=== PATIENT | male | born 1960 | race Caucasian/White ===

== ENCOUNTER 2021-06-07 11:22 | Outpatient (REF) | payer OTHER, SELFPAY ==
[2021-06-07 13:16] LABS: MANUAL DIFF FLAG NO
[2021-06-07 13:23] LABS: Eosinophils Percent Auto 0.2 % (0-4); Hematocrit 44.2 % (42.0-52.0); Hemoglobin 15.3 g/dl (14.0-18.0); Imm Gran Abs Auto 0.01 X10*3/uL (0.00-0.03); Imm Gran Pct Auto 0.2 % (0.0-0.4); Lymphocytes Absolute Auto 1.6 X10*3/uL (1.2-4.9); Lymphocytes Percent Auto 38.1 % (20-40); Mean Corpuscular HGB Conc 34.6 g/dl (31.0-36.0); Mean Corpuscular Hemoglobin 30.2 pg (27.0-33.0); Mean Corpuscular Volume 87.4 fL (80.0-98.0); Mean Platelet Volume 9.1 fL (9.4-12.4); Monocytes Absolute Auto 0.3 X10*3/uL (0.1-1.2); Monocytes Percent Auto 7.3 % (2-11); Neutrophils Absolute Auto 2.3 x10*3/uL (2.0-8.3); Neutrophils Percent Auto 54.2 % (45-73); Platelet Count 160 X10*3/uL (160-400); Red Blood Count 5.06 X10*6/uL (4.60-5.80); Red Cell Distribution Width 12.7 % (11.0-16.0); White Blood Count 4.3 X10*3/uL (4.8-10.8)
[2021-06-07 13:48] LABS: Alanine Aminotransferase 20 U/L (0-40); Albumin Level 4.6 g/dL (3.5-5.0); Alkaline Phosphatase 54 U/L (39-117); Anion Gap 12 (12-20); Aspartate Amino Transferase 20 U/L (5-37); Bilirubin Total 1.3 mg/dL (0.0-1.0); Blood Urea Nitrogen 14 mg/dL (9-16); Calcium 9.5 mg/dL (8.4-10.2); Carbon Dioxide 26 mmol/L (22-29); Chloride 108 mmol/L (96-108); Cholesterol 201 mg/dL; Estimated Glomerular Filt Rate > 60; Glucose Fasting 82 mg/dL (60-99); HDL Cholesterol 44 mg/dL; LDL Cholesterol Calculated 133 mg/dl; Potassium 4.6 mmol/L (3.3-5.1); Sodium 141 mmol/L (135-145); Total Protein 7.3 g/dL (6.5-8.0); Triglycerides 120 mg/dL
[2021-06-07 14:09] LABS: Prostate Specific Antigen 2.47 ng/mL (<0.05-4.0)
== END 2021-06-07 11:23 | disposition home or self-care (01) ==
LOC: HO.MANLDS 11:22
PROVIDERS: PCP Physician Assistant; Visit Provider Physician Assistant
DX: Z12.5 Encounter for screening for malignant neoplasm of prostate (principal); K21.9 Gastro-esophageal reflux disease without esophagitis; Z82.49 Family history of ischemic heart disease and other diseases of the circulatory system; Z80.42 Family history of malignant neoplasm of prostate
CPT/HCPCS: 36415; 80053; 80061; 84153; 85025

== ENCOUNTER 2022-03-11 12:32 | Outpatient (REF) | payer OTHER, SELFPAY ==
--- NOTE | ~2022-03-11 | XR_ITS ---
EXAMINATION: XR FOOT, RIGHT CLINICAL INFORMATION: Right foot calcaneal spur COMPARISON: 10/28/2013 TECHNIQUE: AP, lateral, and oblique views of the right foot. FINDINGS: No acute fracture or dislocation. Insertional calcaneal enthesopathy. Again seen is mild arthritis of the first MTP joint. Os trigonum noted. 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
== END 2022-03-11 12:33 | disposition home or self-care (01) ==
LOC: HO.XRAY 12:32
PROVIDERS: PCP Internal Medicine; Visit Provider Internal Medicine
DX: M77.31 Calcaneal spur, right foot (principal)
CPT/HCPCS: 73630

== ENCOUNTER 2024-07-06 16:13 | Outpatient (REF) | payer MEDICARE, SELFPAY ==
--- OUTSIDE RECORDS SUMMARY | 2024-07-06 16:15 | XMS_ITS | Data Portability ---
Author Organization [facility] Address [address] [place] [address] Assessment Encounter Date Assessment Date Assessment LastModified by Organization Details LastModified Time 01/05/2024 01/05/2024 [id number] [place] [id number] (ENGLISH LECTURER) : MDM LOW MUST MEET 2 OF 3 ELEMENTS: PROBLEMS, DATA OR RISK ELEMENT 1: PROBLEMS ADDRESSED (LOW): 2 OR MORE SELF-LIMITED OR MINOR PROBLEMS OR 1 STABLE CHRONIC ILLNESS OR 1 ACUTE UNCOMPLICATED ILLNESS OR INJURY ELEMENT 2: DATA TO BE REVISED AND ANALYZED (LOW) MUST MEET 1 OF 2 CATEGORIES: CATEGORY 1. REVIEW OF PRIOR EXTERNAL NOTES/RESULTS, ORDERING OF TEST(S) CATEGORY 2. ASSESSMENT REQUIRING INDEPENDENT HISTORIAN(S) INCLUDE WHO THE HISTORIAN IS AND RELATION TO PT AND WHY PT IS UNABLE TO GIVE COMPLETE HISTORY ELEMENT 3: RISK (LOW) RISK OF COMPLICATIONS AND/OR MORBIDITY OR MORTALITY OF PATIENT MANAGEMENT PROVIDER MUST THOROUGHLY DOCUMENT ALL OF THE ELEMENTS COVERED Not available 01/05/2024 16:33:57 03/15/2024 03/15/2024 [id number] [place] [id number] (ENGLISH LECTURER) MDM MODERATE MUST MEET 2 OUT OF 3 ELEMENTS: PROBLEMS, DATA OR RISK ELEMENT 1: PROBLEMS ADDRESSED 1 OR MORE CHRONIC ILLNESS WITH EXACERBATION OR 2 OR MORE STABLE CHRONIC ILLNESSES OR 1 UNDIAGNOSED NEW PROBLEM OR 1 ACUTE ILLNESS W/SYMPTOMS OR 1 ACUTE COMPLICATED INJURY ELEMENT 2: DATA MUST MEET 1 OF 3 CATEGORIES CATEGORY 1: REVIEW OF PRIOR EXTERNAL NOTES, REVIEW OF RESULTS, ORDERING OF EACH TEST, ASSESSMENT REQUIRING INDEPENDENT HISTORIAN OR CATEGORY 2: INDEPENDENT INTERPRETATION OF TESTS BY ANOTHER PHYSICIAN OR SPECIALIST OR CATEGORY 3: DISCUSSION OF MGT OR TEST INTERPRETATION W/EXTERNAL PHYSICIAN OR SPECIALIST ELEMENT 3: RISK RISK OF COMPLICATIONS AND/OR MORBIDITY OR MORTALITY OF PATIENT MANAGEMENT PROVIDER MUST THOROUGHLY DOCUMENT EACH ELEMENT THAT IS COVERED Not available 03/15/2024 15:20:09 07/06/2024 07/06/2024 [id number] [place] [id number] (ENGLISH LECTURER) MDM MODERATE MUST MEET 2 OUT OF 3 ELEMENTS: PROBLEMS, DATA OR RISK ELEMENT 1: PROBLEMS ADDRESSED 1 OR MORE CHRONIC ILLNESS WITH EXACERBATION OR 2 OR MORE STABLE CHRONIC ILLNESSES OR 1 UNDIAGNOSED NEW PROBLEM OR 1 ACUTE ILLNESS W/SYMPTOMS OR 1 ACUTE COMPLICATED INJURY ELEMENT 2: DATA MUST MEET 1 OF 3 CATEGORIES CATEGORY 1: REVIEW OF PRIOR EXTERNAL NOTES, REVIEW OF RESULTS, ORDERING OF EACH TEST, ASSESSMENT REQUIRING INDEPENDENT HISTORIAN OR CATEGORY 2: INDEPENDENT INTERPRETATION OF TESTS BY ANOTHER PHYSICIAN OR SPECIALIST OR CATEGORY 3: DISCUSSION OF MGT OR TEST INTERPRETATION W/EXTERNAL PHYSICIAN OR SPECIALIST ELEMENT 3: RISK RISK OF COMPLICATIONS AND/OR MORBIDITY OR MORTALITY OF PATIENT MANAGEMENT PROVIDER MUST THOROUGHLY DOCUMENT EACH ELEMENT THAT IS COVERED Not available 07/06/2024 16:06:26 Plan of Treatment Reminders Order Date Submit Date Provider Last Modified By Organization Details Last Modified Time Details Appointments SDV 2024 03:30P M DR DAVIS Not available Not available Not available MEDICARE ANNUAL WELLNESS 2025 10:00A M DR DAVIS Not available Not available Not available Lab CMP, serum or plasma 2024 025 [facility], [address] [place] [address], [place], [address], 07/06/2024 16:09:34 lipase, serum or plasma 2024 025 [facility], [address] [place] [address], [address], 07/06/2024 16:09:34 amylase, serum or plasma 2024 025 [facility], [address] [place] [address], [place], [address], 07/06/2024 16:09:34 erythrocy te sedimenta tion rate by giselle n method 2024 025 [facility], [address] [place] [address], [place], [address], 07/06/2024 16:09:34 lipid panel, serum 2024 025 [facility] (Centralized Electronic Ordering - All Locations), Patient Can Go To The Location Of Their Choice, 03/18/2024 10:34:54 CMP, serum or plasma 2024 025 [facility] (Centralized Electronic Ordering - All Locations), Patient Can Go To The Location Of Their Choice, 03/18/2024 10:34:53 CBC w/ auto diff 2024 025 [facility] (Centralized Electronic Ordering - All Locations), Patient Can Go To The Location Of Their Choice, 03/18/2024 10:34:53 PSA, serum or plasma 2024 025 [facility] (Centralized Electronic Ordering - All Locations), Patient Can Go To The Location Of Their Choice, 03/15/2024 15:25:45 Referral None recorded. Procedures None recorded. Surgeries None recorded. Imaging XR, chest, 2 view 2024 025 [facility] (Radiology), [address] [place], [address], 07/06/2024 16:12:01 XR, thoracic spine, 2 view [email or web address] [place] [address] (Radiology), [address] [place], [address], 07/06/2024 16:11:13 MRI, knee, w/o contrast 2023 024 [email or web address] [facility], [address] [place], [address], 01/06/2024 09:01:46 MAMMO, diagnosti c, digital, bilateral - around 10 to 11 oclock [address]23 [email or web address] [place] [address] (Radiology), [address] [place], [address], 11/27/2023 08:38:25 Medication Orders None recorded. Patient TargetsNo targets recorded. Patient InstructionsNo instructions recorded. Reason for Referral None Reported. Results Created Date Observation Date Name Description Value Unit Range Abnormal Flag Note LastModifiedBy Organization Detail LastModifiedTime 11/30/19 24 11/30/2023 MAMMO , diagn ostic , digit al, bilat eral No observ ation record ed. Not Available 2023 16:30:25 12/02/19 24 12/02/2023 MAMMO , diagn ostic , digit al, bilat eral No observ ation record ed. [facility] [address] [place] [address], [address], 01/05/2024 16:30:25 02/18/19 25 02/19/2024 MRI, knee, w/o contr ast No observ ation record ed. [facility] [address] [place] [address], [address], 02/22/2024 23:33:27 03/03/19 25 03/03/2024 MAMMO , diagn ostic , digit al, bilat eral No observ ation record ed. [email or web address] [facility] (Radiology) [address] [place] [address], [address], 03/04/2024 10:51:52 Result Notes None recorded. Problems Name Problem SNOMED Code Status Onset Date Resolution Date Notes Provider Name and Address Organization Details Recorded Time Acid reflux 223112894 Active 2021 Not Available [facility] 3 18:58:48 Calcaneal spur of right foot 549162249440 100 Active 2021 Not Available [facility] 3 18:58:48 Pain of right shoulder joint 040188196804 51804 Active 2021 Not Available [facility] 3 18:58:48 Dislocati on of patellofe moral joint 032814808 Active 2021 Not Available [facility] 3 18:58:48 Gastroeso phageal reflux disease 044216209 Active 07/01/ 2022 Not Available [facility] 3 18:58:48 Gastro-es ophageal reflux disease with esophagit is 015882991 Active 2022 Not Available [facility] 3 18:58:48 Benign prostatic hyperplas ia 414856431 Active 2022 Not Available [facility] 3 18:58:48 Foot pain 49256031 Active 2022 Not Available [facility] 3 18:58:48 Skin tag 640508970 Active 2022 ИВАН SCOTT [address] [place], [address], [facility] 3 13:59:27 Mass of right breast 570793429394 49430 Active 2023 ИВАН SCOTT [address] [place] [address], [address], [facility] 4 10:46:59 Effusion of joint of left knee 898582644607 105 Active 2023 Ashkan Davis, DO [address] [place] [address], [address], [facility] 4 16:34:31 Acute tear of lateral meniscus of left knee 826337157965 24121 Active 2024 Ashkan Davis, DO [address] [place] [address], [address], [facility] 5 23:35:43 Acute thoracic back pain 128464423 Active 2024 Ashkan Davis, DO [address] [place] [address], [address], [facility] 5 16:07:10 Epigastri c pain 02900863 Active 2024 Ashkan Davis, DO [address] [place] [address], [address], [facility] 5 16:07:28 Chest wall pain 190408650 Active 2024 Ashkan DavisDO [address] [place], [address], [facility] 16:11:14 Notes:Some problems listed i n Document: #[id number] could not be added to this patient's chart. Please review this document and add these problems to the patient's chart manually as needed. Problem Notes None recorded. Procedures Surgical History Date Name Laterality Status Provider Name and Address Organization Details Recorded Time Appendectomy completed ИВАН SCOTT [address] [place], [address], [facility] 06/07/2021 10:55:30 Imaging Results Imaging Date Name Status LastModified by Organiz ation Details LastModified Time 11/30/2023 MAMMO, diagnostic, digital, bilateral completed Information not available 01/05/2024 16:30:25 12/02/2023 MAMMO, diagnostic, digital, bilateral completed [address], [address], 01/05/2024 16:30:25 02/19/2024 MRI, knee, w/o contrast completed [facility] [address] [place] [address], [address], 02/22/2024 23:33:27 03/03/2024 MAMMO, diagnostic, digital, bilateral completed [email or web address] [facility] (Radiology) [address] [place] [address], [address], 03/04/2024 10:51:52 Procedure Notes None recorded. Medical Equipment None Reported. Allergies No known drug allergies Medications Name Sig Start Date Stop Date Status Note LastModified by Organization Details LastModified Time meloxicam 15 mg tablet 11/12 completed Not Available Not Available Not Available famotidine 20 mg tablet TAKE 1 TABLET (20 MG) BY ORAL ROUTE 2 TIMES PER DAY as needed for heartburn 03/11 completed OTC Not Available Not Available Not Available tamsulosin 0.4 mg capsule Take 1 capsule every day by oral route for 90 days. 03/15 completed Not Available Not Available Not Available pantoprazol e 40 mg tablet,[facility] release TAKE 1 TABLET BY MOUTH EVERY DAY active Not Available Not Available No t Available amoxicillin 500 mg-potmanjit funez clavulanate 125 mg tablet TAKE 1 TABLET BY MOUTH EVERY 12 HOURS FOR 10 DAYS 06/07 completed Not Available Not Available Not Available Plenvu 140 gram-9 gram-5.2 gram powder packs 11/12 completed Not Available Not Available Not Available BinaxNOW COVID-19 Ag Self Test kit TEST DIRECTED TODAY 11/12 completed Not Available Not Available Not Available Wegovy 0.25 mg/0.5 mL subcutaneou s pen injector ADMINISTE R 0.25 MG UNDER THE SKIN EVERY WEEK active Not Available Not Available No t Available Ozempic 0.25 mg or 0.5 mg (2 mg/3 mL) subcutaneou s pen injector INJECT 0.5 MG UNDER THE SKIN ONE DAY A WEEK active Not Available Not Available No t Available Vitals Date Recorded Body height Body mass index (BMI) Body weight Heart rate Oxygen saturation Oxygen saturation in Arterial blood by Pulse oximetry Systolic blood pressure Diastolic blood pressure Provider Name and Address Organization Details Last Updated DateTime 3 170.18 cm 31.3 kg/m2 30216.4 7 g 66 /min 96 % 96 % 100 mm[Hg] 80 mm[Hg] Rhonda Morales [facility] 3 13:44:56 Date Recorded Body height Body mass index (BMI) Body weight Heart rate Oxygen saturation Oxygen saturation in Arterial blood by Pulse oximetry Systolic blood pressure Diastolic blood pressure Provider Name and Address Organization Details Last Updated DateTime 4 170.18 cm 31.6 kg/m2 03008.5 8 g 59 /min 97 % 97 % 118 mm[Hg] 78 mm[Hg] Melva Lamb [facility] 4 10:38:59 Date Recorded Body height Body mass index (BMI) Body weight Heart rate Oxygen saturation Oxygen saturation in Arterial blood by Pulse oximetry Systolic blood pressure Diastolic blood pressure Provider Name and Address Organization Details Last Updated DateTime 5 170.18 cm 31 kg/m2 11526.2 9 g 58 /min 98 % 98 % 120 mm[Hg] 70 mm[Hg] Rhonda Morales [facility] 5 14:37:07 Date Recorded Body height Body mass index (BMI) Body weight Heart rate Systolic blood pressure Diastolic blood pressure Provider Name and Address Organization Details Last Updated DateTime 170.18 cm 30 kg/m2 93889.0 2 g 99 /min 128 mm[Hg] 72 mm[Hg] Jerica Nava [facility] 5 15:38:21 Date Recorded Oxygen saturation Oxygen saturation in Arterial blood by Pulse oximetry Provider Name and Address Organization Details Last Updated DateTime 07/06/2024 98 % 98 % Ashkan Davis, DO [address] [facility], [place], [address], [facility] 07/06/2024 16:04:52 Social History Question Answer Notes LastModified by Organizat ion Details LastModified Time Tobacco Smoking Status Never Smoker Emma north, [facility] 06/07/2021 10:35:38 Do You Have An Advance Directive? No Information n ot available 06/07/2021 Are You Blind Or Do You Have Difficulty Seeing? No Information n ot available 06/07/2021 What Is Your Level Of Caffeine Consumption? None Information not available 06/07/2021 In The 14 Days Before Symptom Onset, Have You Had Close Contact With A Laboratory-confirm ed COVID-19 While That Case Was Ill? No Information n ot available 03/11/2022 In The 14 Days Before Symptom Onset, Have You Had Close Contact With A Person Who Is Under Investigation For COVID-19 While That Person Was Ill? No Information not available 03/11/2022 Have You Been To An Area Known To Be High Risk For COVID-19? No Information not available 03/11/2022 Are You Deaf Or Do You Have Serious Difficulty Hearing? No Information not available 06/07/2021 What Type Of Diet Are You Following? REGULAR Information n ot available 06/07/2021 What Is The Highest Grade Or Level Of School You Have Completed Or The Highest Degree You Have Received? [id number] Information not available 06/07/2021 How Many Days Of Moderate To Strenuous Exercise, Like A Brisk Walk, Did You Do In The Last 7 Days? 0 Information not available 06/07/2021 Are There Any Guns Present In Your Home? Yes Information not available 06/07/2021 What Was The Date Of Your Most Recent Tobacco Screening? 07/06/2024 [email or web address] Information not available 07/06/2024 How Many Children Do You Have? 2 Information not available 06/07/2021 Do You Use Your Seat Belt Or Car Seat Routinely? Yes Information not available 06/07/2021 Are You Sexually Active? Yes Information not available 06/07/2021 Do You Have Smoke And Carbon Monoxide Detectors In Your Home? Yes Information not available 06/07/2021 Are You Passively Exposed To Smoke? No Information no t available 06/07/2021 Do You Use Sunscreen Routinely? Yes Information not available 06/07/2021 Do You Have Difficulty Walking Or Climbing Stairs? No Information not available 06/07/2021 Sex: Unknown Functional Status Question Answer Note LastModified by [email or web address] ion Details LastModified Time Do you use any illicit or recreational drugs? No Information not available 03/11/2022 Do you or have you ever used any other forms of tobacco or nicotine? No Information not available 03/11/2022 What is your level of alcohol consumption? Occasional Information not available 06/07/2021 Are you currently employed? Yes Information not available 06/07/2021 Are you able to walk? YESWOREST Information not available 06/07/2021 Do you have difficulty doing errands alone? No Information not available 06/07/2021 Are you able to care for yourself? 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 No Information not available 06/07/2021 What is your exercise level? Occasional Information not available 06/07/2021 Mental Status Question Answer Note LastModified by Catmojiizat ion Details LastModified Time Do you feel stressed (tense, restless, nervous, or anxious, or unable to sleep at night)? [id number] Information not available 06/07/2021 Do you have difficulty concentrating, remembering or making decisions? No Information no t available 06/07/2021 Family History Relationship Description Onset Age of this Age Resolved Age Notes LastModified by Organization Details LastModified Time Father Type 2 diabetes mellitus [email or web address] Not available 2024 14:30:13 Father Carcinoma of prostate [email or web address] Not available 2024 14:30:14 Father Heart disease [email or web address] Not available 2021 10:52:16 Mother Heart disease [email or web address] Not available 2021 10:52:16 Mother Gastroesopha geal reflux disease [email or web address] Not available 2024 14:30:14 Medical History No medical history recorded. Immunizations Vaccine Type Date Status Note Provider Nam e and Address Organization Details Recorded Time COVID-19, mRNA, LNP-S, PF, 100 mcg/0.5mL dose or 50 mcg/0.25mL dose 1 completed Not Available [facility] 07/29/2022 21:29:45 COVID-19, mRNA, LNP-S, PF, 100 mcg/0.5mL dose or 50 mcg/0.25mL dose 1 completed Not Available [facility] 07/29/2022 21:29:45 COVID-19, mRNA, LNP-S, PF, 100 mcg/0.5mL dose or 50 mcg/0.25mL dose 1 completed Not Available [facility] 07/29/2022 21:29:45 zoster, unspecified formulation 8 completed Not Available [facility] 07/29/2022 21:29:45 Td(adult) unspecified formulation 3 completed Not Available [facility] 07/29/2022 21:29:45 Influenza, split virus, quadrivalent, preservative 5 completed Not Available [facility] 07/29/2022 21:29:44 Influenza, split virus, quadrivalent, preservative 6 completed Not Available [facility] 07/29/2022 21:29:44 Influenza, split virus, quadrivalent, preservative 7 completed Not Available [facility] 07/29/2022 21:29:44 Influenza, split virus, quadrivalent, preservative 8 completed Not Available [facility] 07/29/2022 21:29:44 Influenza, split virus, quadrivalent, preservative 9 completed Not Available [facility] 07/29/2022 21:29:44 Influenza, split virus, quadrivalent, preservative 2 completed Not Available [facility] 07/29/2022 21:29:44 COVID-19, mRNA, LNP-S, PF, 100 mcg/0.5mL dose or 50 mcg/0.25mL dose 2 completed Not Available [facility] 07/29/2022 21:29:45 COVID-19 mRNA, bivalent, original/Omicron BA.1, Non-US Vaccine (Spikevax Bivalent), Moderna 3 completed Ashkan Davis DO [address] [place] [address], [address], [facility] 11/14/2022 06:45:56 Past Encounters Encounter ID Performer Location Encounter Start Date Encounter Closed Date Diagnosis/Indication Diagnosis SNOMED-CT Code Diagnosis ICD10 Code Diagnosis Note [id number] Ashkan Davis DO [facility] [address] [place] [address],[place] [address] 06/07/2021 10:11:57 06/10/2021 10:16:47 Acid reflux 741424554 K21.9 will monitor Family his tory of Cardiovascular disease 614078968 Z82.49 will fu with baseline lab work Family his tory of malignant neoplasm of prostate 192805003 Z80.42 will monitor his PSA Calcaneal spur of right foot 1166426656 13668 M77.31 stable Pain of ri ght shoulder joint 1502257246 9265990 M25.511 stable Dislocatio n of patellofemoral joint 744532167 S83.095A stable [id number] Ashkan Davis DO [facility] [address] [place] [address], [place] [address] 08/16/2021 08:44:23 08/16/2021 15:47:55 Gastroesophageal reflux disease 791013319 K21.00 will fu with GI referral for endoscopy for worsening GERD symptoms, no improvemen t on meds [id number] Ashkan Davis [facility] [address] [facility],[place] [address] 03/11/2022 10:49:02 03/12/2022 08:51:59 Active or passive immunization 372627558 Z23 patient advised he is due for tdap & shingles Adult heal th examination 049861494 Z00.01 Gastro-eso phageal reflux disease with esophagitis 706993850 K21.00 Benign pro static hyperplasia 215957241 N40.1 Calcaneal spur of right foot 6336296528 75140 M77.31 [id number] [facility] [address] [facility],[place] [address] 04/16/2022 09:32:55 04/16/2022 10:39:44 Gastroesophageal reflux disease 585581066 K21.00 doing fantastic with the pantoprazo le we will cont Benign pro static hyperplasia 841918000 N40.1 better with tamsulosin not going as often Calcaneal spur of right foot 8714594929 17314 M77.31 going to see the spiral gear generator Acid reflux 106212218 K2 1.9 doing great with the pantoprazo le [id number] Ashkan Davis [facility] [address] [facility],[place] [address] 12/22/2022 13:39:31 12/22/2022 14:35:25 Skin tag 840496977 L91.8 removeddre ssed [id number] Ashkan Davis [facility] [address] [place] [address] 11/13/2023 10:26:58 11/13/2023 11:30:13 Depression screening 734017449 Z13.31 SCREENING NEGATIVE Mass of right breast 833 4594339 1716467 N63.11 [id number] Ashkan Davis [facility] [address] [facility] [address] [address] 01/05/2024 15:54:10 01/05/2024 16:42:25 Effusion of joint of left knee 7428314513 46557 M25.462 jenn kailee inj no issue [id number] Ashkan Davis [facility] [address] [facility] [address] [address] 03/15/2024 14:29:19 03/15/2024 15:41:10 Gastro-esophageal reflux disease with esophagitis 079004667 K21.00 stable on pantoprazo le Acute tear of lateral meniscus of left knee 5931684842 3900357 S83.282D kailee worked great will have him cxl the ortho Cholesterol screening 27 5555199 Z13.220 [id number] sAhkan Davis [facility] [address] [facility] [address] [address] 07/06/2024 15:17:02 07/06/2024 16:11:12 Depression screening 209374331 Z13.31 neg Acute thor acic back pain 541068239 M54.6 Epigastric pain 20148664 R10.13 Chest wall pain 04834423 6 R07.89 Health Concerns Section Related Observation LastModified by Organization Detai ls LastModified Time None Recorded Concern Status LastModified by Organization Details LastModified Time None Recorded Advance Directives Directive N: Payers Encounter Date Sequence Insurance Name Policy Number Policy Frazier Covered Member ID Frazier Member ID Guarantor Name 12/22/2022 1 [facility] [id number] Joe Jimenez [id number] Joe Jimenez 11/13/2023 1 [place] Joe Jimenez [id number] Joe Jimenez 11/13/2023 2 [place] [id number] Joe Jimenez [id number] Joe Jimenez 01/05/2024 1 [place] Joe Jimenez [id number] Joe Jackson Mariirevaldemar 01/05/2024 2 [place] [id number] Joe Jackson Mariireau [id number] Joe Jackson Mariireau 03/15/2024 1 [place] Joe Jackson [place]au [id number] Joe Jackson Mariireau 03/15/2024 2 [place] [id number] Joe Jackson Mariireau [id number] Joe Jackson Mariireau 07/06/2024 1 [place] Joe Jackson [place] [id number] Joe Jackson Mariireau 07/06/2024 2 [place] [id number] Joe Jackson Tony [id number] Joe Jackson Tony Notes Date Note Type Note Provider Name a il Address Organization Details Recorded Time 3 text/html c/o lump testicle patient has a skin tag under his right testicle, perineum areasmall, benignit irritates him since it gets snaggedremoved today in officenot other concerns today no masses or lumps of the actual testicles ИВАН SCOTT [address] [place], [address], [facility] 12/22/2022 13:59:48 4 text/html R breast Lump the patient reports that he felt it there two days agoit was tender when he was pressing on itno discharge from the nipple, no nipple inversion, no skin changes did an exam on him and noted the lump around 10 to 11 o'clock Upper Outer Quadranttender when she palpated pt consents to breast examnotable lump at spot patient describedagreed to imaging ИВАН SCOTT [address] [place], [address], [facility] 11/13/2023 10:56:33 4 text/html here for rechk and is doing okstates that he is having a lot of pain in the left kneesore at night Ashkan Davis DO [address] [place], [address], [facility] 01/05/2024 16:40:34 5 text/html here for rechkdoing ok overallknee is great since kailee injhad a small [place] on scalptamsulosin is not helpfulgerd is stable with pantoprazole Ashkan Davis DO [address] [place], [address], [facility] 03/15/2024 15:26:11 5 text/html has noted onset of bilat diaphragmatic painstates that its worse with a cough or deep breathworse if a sudden jolt or ride over a bumpno GI symptomsno n/v/d nofeversocc lightheadedPAIN ALSO SEEMS CENTERED AT MID BACK T SPINE Ashkan Davis DO [address] [place], [address], [facility] 07/06/2024 16:12:09
--- OUTSIDE RECORDS SUMMARY | 2024-07-06 16:15 | XMS_ITS | Continuity of Care Document ---
Author Organization [place] [facility], [facility] Address [address] [place] [address] [place] [address] Assessment Encounter Date Assessment Date Assessment LastModified by Organization Details LastModified Time 07/06/2024 07/06/2024 [id number] [place] [id number] (SMELTER CHARGER) MDM MODERATE MUST MEET 2 OUT OF [...] Lab CMP, serum or plasma 2024 025 [facility], [address] [place] [address], [place], [address], 07/06/2024 16:09:34 lipase, serum or plasma 2024 025 [facility], [address] [place], [address], 07/06/2024 16:09:34 amylase, serum or plasma 2024 025 [facility], [address] [place] [address], [address], 07/06/2024 16:09:34 erythrocy te sedimenta tion rate by giselle murillo 2024 025 [facility], [address] [place] [address], [address], 07/06/2024 16:09:34 Referral None recorded. Procedures None recorded. Surgeries None recorded. Imaging XR, chest, 2 view 2024 [facility] (Radiology), [address] [place], [address], 07/06/2024 16:12:01 XR, thoracic spine, 2 view [email or web address] (Radiology), [address] [place], [address], 07/06/2024 16:11:13 Medication Orders None recorded. Patient TargetsNo targets recorded. Patient InstructionsNo instructions recorded. Reason for Referral None Reported. Problems Name Problem SNOMED Code Status Onset Date Resolution Date Notes Provider Name and Address Organization Details Recorded Time Acid reflux 107876917 Active 2021 Not Available [facility] 3 18:58:48 Calcaneal spur of right foot 469317894044 100 Active 2021 Not Available [facility] 3 18:58:48 Pain of right shoulder joint 022076945203 29401 Active 2021 Not Available [facility] 3 18:58:48 Dislocati on of patellofe moral joint 473225185 Active 2021 Not Available [facility] 3 18:58:48 Gastroeso phageal reflux disease 631846792 Active 2021 Not Available [facility] 3 18:58:48 Gastro-es ophageal reflux disease with esophagit is 694884919 Active 2022 Not Available [facility] 3 18:58:48 Benign prostatic hyperplas ia 708531322 Active 2022 Not Available [facility] 3 18:58:48 Foot pain 60197943 Active 2022 Not Available [facility] 3 18:58:48 Skin tag 383664400 Active 2022 ИВАН SCOTT [address] [place], [address], [facility] 3 13:59:27 Mass of right breast 337965855780 10962 Active 2023 ИВАН SCOTT [address] [place] [address], [address], [facility] 4 10:46:59 Effusion of joint of left knee 925385322273 105 Active 2023 Ashkan Davis, DO [address] [place] [address], [address], [facility] 4 16:34:31 Acute tear of lateral meniscus of left knee 643338549414 29106 Active 2024 Ashkan Davis, DO [address] [place] [address], [address], [facility] 5 23:35:43 Acute thoracic back pain 936944114 Active 2024 Ashkan Davis, DO [address] [place] [address], [address], [facility] 5 16:07:10 Epigastri c pain 77163183 Active 2024 Ashkan Davis DO [address] [place] [address], [address], [facility] 5 16:07:28 Chest wall pain 604471687 Active 2024 Ashkan Davis, DO [address] [place], [address], [facility] 16:11:14 Notes:Some problems listed i n Document: #[id number] could not be added to this patient's chart. Please review this document and add these problems to the patient's chart manually as needed. Problem Notes None recorded. Procedures Surgical History Date Name Laterality Status Provider Name and Address Organization Details Recorded Time Appendectomy completed ИВАН SCOTT [address] [place], [address], [facility] 06/07/2021 10:55:30 Imaging Results None recorded. Procedure Notes None recorded. Medical Equipment None [...] Not Available No t Available amoxicillin 500 mg-potassiu m clavulanate 125 mg tablet TAKE 1 TABLET [...] Last Updated DateTime 170.18 cm 30 kg/m2 91994.0 2 g 99 /min 128 mm[Hg] 72 mm[Hg] Jerica Brandy [facility] 15:38:21 Date Recorded Oxygen saturation Oxygen saturation in Arterial blood by Pulse oximetry Provider Name and Address Organization Details Last Updated DateTime 07/06/2024 98 % 98 % Ashkan Davis, DO [address] [place], [address], [facility] 07/06/2024 16:04:52 Social History Question Answer Notes LastModified by Organizat ion Details LastModified Time Tobacco Smoking Status Never Smoker Emma north, [facility] 06/07/2021 10:35:38 Do You [...] Or The Highest Degree You Have Received? 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 No Information not available 06/07/2021 What is your exercise level? Occasional Information not available 06/07/2021 Mental Status Question Answer Note LastModified by Organizat ion Details LastModified Time Do you feel stressed (tense, restless, nervous, or anxious, or unable to sleep at night)? [id number] Information not available 06/07/2021 Do you have [...] 50 mcg/0.25mL dose 1 completed Not Available [facility] 07/29/2022 21:29:45 COVID-19, mRNA, LNP-S, PF, 100 mcg/0.5mL dose or 50 mcg/0.25mL dose 1 completed Not Available [facility] 07/29/2022 21:29:45 COVID-19, mRNA, LNP-S, PF, 100 mcg/0.5mL dose or 50 mcg/0.25mL dose 1 completed Not Available [facility] 07/29/2022 21:29:45 zoster, unspecified formulation 8 completed Not Available [facility] 07/29/2022 21:29:45 Td(adult) unspecified formulation 3 completed Not Available [facility] 07/29/2022 21:29:45 Influenza, split virus, quadrivalent, preservative 5 completed Not Available [facility] 07/29/2022 21:29:44 Influenza, split virus, quadrivalent, preservative 6 completed Not Available [facility] 07/29/2022 21:29:44 Influenza, split virus, quadrivalent, preservative 7 completed Not Available [facility] 07/29/2022 21:29:44 Influenza, split virus, quadrivalent, preservative 8 completed Not Available [facility] 07/29/2022 21:29:44 Influenza, split virus, quadrivalent, preservative 9 completed Not Available [facility] 07/29/2022 21:29:44 Influenza, split virus, quadrivalent, preservative 2 completed Not Available [facility] 07/29/2022 21:29:44 COVID-19, mRNA, LNP-S, PF, 100 mcg/0.5mL dose or 50 mcg/0.25mL dose 2 completed Not Available [facility] 07/29/2022 21:29:45 COVID-19 mRNA, bivalent, original/Omicron BA.1, Non-US Vaccine (Spikevax Bivalent), Moderna 3 completed Ashkna Davis DO [address] [place] [address], [address], [facility] 11/14/2022 06:45:56 Past Encounters Encounter ID Performer Location Encounter Start Date Encounter Closed Date Diagnosis/Indication Diagnosis SNOMED-CT Code Diagnosis ICD10 Code Diagnosis Note [id number] Ashkan Davis DO [facility] [address] [place] [address],[place] [address] 07/06/2024 15:17:02 07/06/2024 16:11:12 Depression screening 987236572 Z13.31 neg Acute thor acic back pain 605829605 M54.6 Epigastric pain 79248935 R10.13 Chest wall pain 00704614 6 R07.89 Health Concerns Section Related Observation LastModified by Organization Detai ls LastModified Time None Recorded Concern Status LastModified by Organization Details LastModified Time None Recorded Payers Encounter Date Sequence Insurance Name Policy Number Policy Frazier Covered Member ID Frazier Member ID Guarantor Name 07/06/2024 1 [place] [employer] Joe Jimenez [id number] Joe Jimenez 07/06/2024 2 [place] [id number] Joe Jimenez [id number] Joe Jimenez Notes Date Note Type Note Provider Name a nd Address Organization Details Recorded Time 5 text/html has noted onset of bilat diaphragmatic painstates that its worse with a cough or deep breathworse if a sudden jolt or ride over a bumpno GI symptomsno n/v/d nofeversocc lightheadedPAIN ALSO SEEMS CENTERED AT MID BACK T SPINE Ashkan Davis, DO [address] [facility], [place], [address], [facility] 07/06/2024 16:12:09
[2024-07-06 18:34] LABS: Alanine Aminotransferase 23 U/L (0-40); Albumin Level 4.6 g/dL (3.5-5.0); Alkaline Phosphatase 50 U/L (39-117); Amylase 103 U/L (28-100); Anion Gap 10 (12-20); Aspartate Amino Transferase 27 U/L (5-37); Bilirubin Total 1.2 mg/dL (0.0-1.0); Blood Urea Nitrogen 14 mg/dL (9-16); Calcium 9.3 mg/dL (8.4-10.2); Carbon Dioxide 27 mmol/L (22-29); Chloride 108 mmol/L (96-108); Estimated Glomerular Filt Rate > 60; Glucose Random 88 mg/dL (60-115); Lipase 28 U/L (8-78); Potassium 3.8 mmol/L (3.3-5.1); Sodium 141 mmol/L (135-145); Total Protein 7.2 g/dL (6.5-8.0)
[2024-07-06 19:12] LABS: Erythrocyte Sedimentation Rate 2 MM/HR (0-15)
== END 2024-07-06 16:14 | disposition home or self-care (01) ==
LOC: HO.MANLDS 16:13
PROVIDERS: Visit Provider Internal Medicine
DX: R10.13 Epigastric pain (principal)
CPT/HCPCS: 36415; 80053; 82150; 83690; 85652

== ENCOUNTER 2024-09-20 09:30 | Outpatient (REF) | payer MEDICARE, SELFPAY ==
--- OUTSIDE RECORDS SUMMARY | 2024-09-20 09:55 | XMS_ITS | Clinical Summary ---
Author Organization [facility] Address [address] [place] [id number] Phone Care Team Providers Care Manager User Experience Name Role Phone Larry Mckenzie MD Primary Care Provider Allergies No known active allergies Medications pantoprazole (PROTONIX) 20 MG tablet Take 20 mg by mouth. 0 10/08/2018 Active raNITIdine (ZANTAC) 300 MG tablet Take 300 mg by mouth. 08/05/2018 Active omega 5-isb-djy-fish oil (FISH OIL) 100-160-1,000 mg Cap 1 capsule Active Family History Medical History Relation Comments Cancer Father 2 Relation Status Comments Father 1 Father 2 Social History Tobacco Use Types Packs/Day Years Used Date Smoking Tobacco: Never Smokeless Tobacco: Never Education Answer Date Recorded Are you interested in more education? Not on fouzia e 06/13/2022 Are you concerned about learning? Not on file 06/13/2022 No 06/13/2022 No 06/13/2022 Digital Access Answer Date Recorded No 07/12/2022 No 07/12/2022 Reliable internet access at home? Not on file 07/12/2022 Device with a working camera? Not on file Sex and Gender Information Value Date Recorded Sex Assigned at Not on file Legal Sex Male 9:50 PM EDT Gender Identity Not on file Sexual Orientation Not on file Last Filed Vital Signs Vital Sign Reading Time Taken Comments Blood Pressure 129/92 11/30/2018 9:59 AM EDT Pulse 65 11/30/2018 9:20 AM EDT Temperature 36.7 C (98 F) 11/30/2018 9:20 AM EDT Respiratory Rate 16 11/30/2018 9:20 AM EDT Oxygen Saturation 99% 11/30/2018 9:20 AM EDT Inhaled Oxygen Concentration - - Weight 91.4 kg (201 lb 6.4 oz) 11/30/2018 9:20 A M EDT Height 171.5 cm (5' 7.52 ) 11/30/2018 9:20 AM ED T Body Mass Index 31.06 11/30/2018 9:20 AM EDT Plan of Treatment Health Maintenance Due Date Last Done Comments DEPRESSION SCREENING 1970 HEPATITIS C SCREENING 1976 COLOGUARD 09/08/2003 COLONOSCOPY 09/08/2003 COLORECTAL CANCER SCREENING 09/08/2003 FIT TEST 09/08/2003 FOBT 09/08/2003 SIGMOIDOSCOPY 09/08/2003 VIRTUAL COLONOSCOPY 09/08/2003 PNEUMOCOCCAL VACCINES (50+ years) (1 of 1 - PCV) 2008 ZOSTER VACCINES (2 of 2) 02/17/2018 12/23/2017 Adult Td,Tdap Booster 04/03/2022 04/03/2012 , 05/17/2008 LIPID PANEL 10/07/2023 10/06/2018 COVID-19 VACCINE (3 - 2023-2 5 season) 2023 03/29/2020, 03/01/2020 RSV VACCINE (1 - 1-dose 75+ series) 2033 SMOKING STATUS SCREENING (On ce After 26 Yrs) Completed 11/30/2018 HEPATITIS A VACCINES Aged Out No long er eligible based on patient's age to complete this topic HIB VACCINES Aged Out No longer eligi ble based on patient's age to complete this topic MENINGOCOCCAL VACCINES (ACWY) Aged Out No longer eligible based on patient's age to complete this topic MENINGOCOCCAL VACCINES (B) Aged Out N o longer eligible based on patient's age to complete this topic Medical Devices Not on file Insurance [facility] Care Teams Manager User Experience Relationship Specialty Start Date End Date Larry Mckenzie MD PCP - General Internal Medicine 11/30/18 Additional Source Comments The information contained in this document represents components of the legal health record. It is not the complete legal health record.[facility]
--- OUTSIDE RECORDS SUMMARY | 2024-09-20 09:55 | XMS_ITS ---
Author Name [facility] Organization Unknown Care Team Organization Name Specialty Phone Email Start Date End Da te [facility] Termed, PROVIDER Primary Care 12/24/202109/16
[2024-09-20 13:49] LABS: Hemoglobin A1C 113.5950 umol/L; Total Hemoglobin (HGBA1C) 4030.5300 umol/L
[2024-09-20 13:59] LABS: Cholesterol 181 mg/dL (<200); HDL Cholesterol 46 mg/dL (>40); Triglycerides 143 mg/dL (<150)
== END 2024-09-20 09:31 | disposition home or self-care (01) ==
LOC: HO.MANLDS 09:30
PROVIDERS: Visit Provider Physician Assistant
DX: E78.00 Pure hypercholesterolemia, unspecified (principal); Z13.1 Encounter for screening for diabetes mellitus
CPT/HCPCS: 36415; 80061; 83036